=== PATIENT | male | born 1960 | race Two or more races ===

== ENCOUNTER 2020-09-15 10:14 | Inpatient (IN) | payer OTHER ==
[~2020-09-15] VITALS: Ht 167.6 cm; Wt 72.9 kg
[2020-09-15 11:08] LABS: GLUCOSE,POINT OF CARE 55 MG/DL (70-110)
[2020-09-15] MEDS ORDERED: DEXTROSE 50%-WATER 25 GM/50 ML SYRINGE IVP PRN (11:15)
[2020-09-15] MEDS ORDERED: INSULIN LISPRO 100 UNITS/ML SQ PRN (11:15)
[2020-09-15] MEDS ORDERED: DEXTROSE 50%-WATER 25 GM/50 ML SYRINGE IVP ONE (11:15)
[2020-09-15 11:22] LABS: GLUCOSE,POINT OF CARE 52 MG/DL (70-110)
[2020-09-15 11:29] LABS: BASOPHILS % (AUTO) 0.3 % (0.0-2.0); EOSINOPHILS % (AUTO) 0.6 % (1.0-6.0); HEMATOCRIT 45.5 % (41-53); LYMPHOCYTES # (AUTO) 1.4 K/uL (1.0-4.8); LYMPHOCYTES % (AUTO) 18.1 % (22.0-44.0); MEAN CORPUSCULAR HEMOGLOBIN 28.8 pg (26.0-34.0); MEAN CORPUSCULAR HGB CONC 32.9 G/dL (31.0-37.0); MEAN CORPUSCULAR VOLUME 88 fL (80-100); MONOCYTES # (AUTO) 0.5 K/uL (0.1-1.0); MONOCYTES % (AUTO) 6.4 % (2.0-9.0); NEUTROPHILS # (AUTO) 5.6 K/uL (1.8-7.7); NEUTROPHILS % (AUTO) 74.6 % (40.0-70.0); PLATELET COUNT (AUTO) 211 K/uL (150-450); RED CELL DISTRIBUTION WIDTH 15.4 % (11.5-14.5)
[2020-09-15 11:30] LABS: COVID AG,FIA SOURCE NASOPHARYNGEAL
[2020-09-15] MEDS ORDERED: ALBUTEROL SULFATE 2.5 MG/0.5 ML NEB SOLUTION NEB PRN (11:30)
[2020-09-15] MEDS ORDERED: ONDANSETRON HCL 4 MG/2 ML VIAL IVP PRN (11:30)
[2020-09-15 11:43] LABS: PROTHROMBIN TIME 10.9 SEC (9.4-11.6)
[2020-09-15 11:47] LABS: ANION GAP 5 mmol/L (8-16); CARBON DIOXIDE 31 mmol/L (22-29); CHLORIDE 104 mmol/L (98-107); CREATININE 0.72 mg/dL (0.60-1.30); GLOMERULAR FILTR. RATE CALC > 60 mL/min (>60); GLUCOSE,RANDOM 88 mg/dL (70-110); POTASSIUM 4.7 mmol/L (3.5-5.1); SODIUM SERUM 140 mmol/L (136-145); UREA NITROGEN, BLOOD 13 mg/dL (7-18)
[2020-09-15 11:49] LABS: APPEARANCE,URINE CLEAR (CLEAR); BILIRUBIN,URINE NEGATIVE (NEGATIVE); GLUCOSE, URINE (UA) NEGATIVE (NEGATIVE); KETONES,URINE NEGATIVE (NEGATIVE); LEUKOCYTE ESTERASE ,URINE NEGATIVE (NEGATIVE); NITRATE,URINE NEGATIVE (NEGATIVE); OCCULT BLOOD,URINE NEGATIVE (NEGATIVE); PROTEIN,URINE NEGATIVE (NEGATIVE); UROBILINOGEN,URINE 0.2 mg/dL (<=1.0)
[2020-09-15 11:53] LABS: ALANINE AMINOTRANSFERASE 95 U/L (12-78); ALBUMIN 3.9 g/dL (3.4-5.0); ALKALINE PHOSPHATASE 148 U/L (46-116); ASPARTATE AMINOTRANSFERASE 64 U/L (15-37); BILIRUBIN,TOTAL 0.6 mg/dL (0.1-1.0); LIPASE 449 U/L (73-393); TOTAL PROTEIN, SERUM 7.6 g/dL (6.4-8.2)
[2020-09-15 11:59] LABS: B-TYPE NATRIURETIC PEPTIDE 23 pg/mL (0-100)
[2020-09-15 12:20] LABS: SQUAMOUS EPITHELIAL CELL,UR Rare /LPF (None Seen)
[2020-09-15 12:22] LABS: RBC,URINE 0-2 /HPF (0-2); WBC,URINE 0-2 /HPF (0-5)
[2020-09-15 12:23] LABS: BACTERIA,URINE None Seen /HPF (None Seen)
[2020-09-15 12:27] LABS: GLUCOSE,POINT OF CARE 272 MG/DL (70-110)
[2020-09-15 13:19] LABS: GLUCOSE,POINT OF CARE 225 MG/DL (70-110)
[2020-09-15 14:00] VITALS: BP 132/54
[2020-09-15] MEDS: HEPARIN SODIUM,PORCINE 5,000 UNITS/ML VIAL SQ SCH ×3 (16:00→23:33)
[2020-09-15] MEDS: CloNIDine HCL 0.1 MG TABLET PO PRN (16:50)
[2020-09-15 17:45] VITALS: BP 144/86
[2020-09-15 19:21] VITALS: BP 165/96
[2020-09-15] MEDS: ACETAMINOPHEN 325 MG TABLET PO PRN ×2 (19:24→19:25)
[2020-09-15] MEDS: DOCUSATE SODIUM 100 MG CAPSULE PO SCH (19:37)
[2020-09-15 23:09] VITALS: BP 136/97
[2020-09-16] VITALS (7 sets, daily range): BP systolic 121–191; BP diastolic 71–113
[2020-09-16] MEDS: FAMOTIDINE 20 MG TABLET PO SCH (08:19)
[2020-09-16] MEDS: HEPARIN SODIUM,PORCINE 5,000 UNITS/ML VIAL SQ SCH ×3 (08:19→23:46)
[2020-09-16] MEDS: DOCUSATE SODIUM 100 MG CAPSULE PO SCH ×2 (08:19→20:13)
[2020-09-16] MEDS: CloNIDine HCL 0.1 MG TABLET PO PRN (09:15)
[2020-09-16] MEDS: LISINOPRIL 20 MG TABLET PO SCH (10:30)
[2020-09-16 11:31] LABS: GLUCOMETER DEV NAME(LOC) 5S.1; GLUCOSE,POINT OF CARE 121 MG/DL (70-110)
[2020-09-16 11:32] LABS: GLUCOMETER DEV NAME(LOC) 5N.3; GLUCOSE,POINT OF CARE 106 MG/DL (70-110)
[2020-09-16] MEDS: MetFORMIN HCL 500 MG TABLET PO SCH (17:06)
[2020-09-16 17:41] LABS: AMPHET/METH SCREEN,URINE POSITIVE (NEGATIVE); BARBITURATE SCREEN, URINE NEGATIVE (NEGATIVE); BENZODIAZEPINES SCREEN,URINE NEGATIVE (NEGATIVE); CANNABINOID SCREEN,URINE NEGATIVE (NEGATIVE); COCAINE SCREEN,URINE NEGATIVE (NEGATIVE); METHADONE SCREEN, URINE NEGATIVE (NEGATIVE); OPIATE SCREEN,URINE NEGATIVE (NEGATIVE)
[2020-09-16 17:42] LABS: PHENCYCLIDINE SCREEN,URINE NEGATIVE (NEGATIVE)
[2020-09-16 18:11] LABS: GLUCOMETER DEV NAME(LOC) 6N.1; GLUCOSE,POINT OF CARE 86 MG/DL (70-110)
[2020-09-16 19:53] LABS: GLUCOMETER DEV NAME(LOC) 5S.1; GLUCOSE,POINT OF CARE 93 MG/DL (70-110)
[2020-09-16 23:48] LABS: GLUCOMETER DEV NAME(LOC) 6N.1; GLUCOSE,POINT OF CARE 132 MG/DL (70-110)
[2020-09-17] MEDS: ACETAMINOPHEN 325 MG TABLET PO PRN (00:36)
[2020-09-17 00:55] VITALS: BP 113/75
[2020-09-17 05:25] LABS: GLUCOMETER DEV NAME(LOC) 6N.1; GLUCOSE,POINT OF CARE 90 MG/DL (70-110)
[2020-09-17 05:38] VITALS: BP 188/105
[2020-09-17 06:26] LABS: ANION GAP 5 mmol/L (8-16); CALCIUM, TOTAL 8.2 mg/dL (8.8-10.5); CARBON DIOXIDE 27 mmol/L (22-29); CHLORIDE 106 mmol/L (98-107); CREATININE 0.77 mg/dL (0.60-1.30); GLOMERULAR FILTR. RATE CALC > 60 mL/min (>60); GLUCOSE,RANDOM 97 mg/dL (70-110); POTASSIUM 3.9 mmol/L (3.5-5.1); SODIUM SERUM 138 mmol/L (136-145); UREA NITROGEN, BLOOD 23 mg/dL (7-18)
[2020-09-17 08:04] VITALS: BP 149/96
[2020-09-17] MEDS: MetFORMIN HCL 500 MG TABLET PO SCH ×2 (08:12→16:56)
[2020-09-17] MEDS: HEPARIN SODIUM,PORCINE 5,000 UNITS/ML VIAL SQ SCH ×3 (08:12→23:13)
[2020-09-17] MEDS: DOCUSATE SODIUM 100 MG CAPSULE PO SCH ×2 (08:19→20:37)
[2020-09-17] MEDS: FAMOTIDINE 20 MG TABLET PO SCH (08:19)
[2020-09-17] MEDS: LISINOPRIL 20 MG TABLET PO SCH (08:19)
[2020-09-17 13:09] LABS: GLUCOMETER DEV NAME(LOC) 6N.1; GLUCOSE,POINT OF CARE 93 MG/DL (70-110)
[2020-09-17] MEDS ORDERED: FUROSEMIDE 40 MG/4 ML VIAL IVP ONE (15:15)
[2020-09-17 19:50] VITALS: BP 135/79
[2020-09-17 20:20] LABS: GLUCOMETER DEV NAME(LOC) 6S.1; GLUCOSE,POINT OF CARE 139 MG/DL (70-110)
[2020-09-17 22:27] LABS: GLUCOMETER DEV NAME(LOC) 6N.1; GLUCOSE,POINT OF CARE 148 MG/DL (70-110)
[2020-09-18 04:59] VITALS: BP 154/92
[2020-09-18 05:50] LABS: GLUCOMETER DEV NAME(LOC) 6S.1; GLUCOSE,POINT OF CARE 97 MG/DL (70-110)
[2020-09-18 06:34] LABS: AMYLASE 120 U/L (25-115); LIPASE 293 U/L (73-393)
[2020-09-18 08:06] VITALS: BP 132/82
[2020-09-18] MEDS: LISINOPRIL 20 MG TABLET PO SCH (08:36)
[2020-09-18] MEDS: DOCUSATE SODIUM 100 MG CAPSULE PO SCH ×2 (08:36→20:58)
[2020-09-18] MEDS: FAMOTIDINE 20 MG TABLET PO SCH (08:37)
[2020-09-18] MEDS: HEPARIN SODIUM,PORCINE 5,000 UNITS/ML VIAL SQ SCH ×2 (08:37→16:09)
[2020-09-18] MEDS: MetFORMIN HCL 500 MG TABLET PO SCH (08:37)
[2020-09-18] MEDS ORDERED: FUROSEMIDE 40 MG/4 ML VIAL IVP SCH (09:00)
[2020-09-18] MEDS ORDERED: FAMO20 PO (19:26)
[2020-09-18] MEDS ORDERED: LISI-893 PO (19:26)
[2020-09-18] MEDS ORDERED: INSU100V SQ (19:27)
[2020-09-18] MEDS ORDERED: ACET-2247 PO (19:27)
[2020-09-18 19:46] LABS: GLUCOMETER DEV NAME(LOC) 6N.1; GLUCOSE,POINT OF CARE 132 MG/DL (70-110)
[2020-09-18 19:46] LABS: GLUCOMETER DEV NAME(LOC) 6N.1; GLUCOSE,POINT OF CARE 118 MG/DL (70-110)
[2020-09-18 20:00] VITALS: BP 126/66
[2020-09-19] MEDS: HEPARIN SODIUM,PORCINE 5,000 UNITS/ML VIAL SQ SCH
[2020-09-19 03:52] VITALS: BP 144/85
== END 2020-09-19 07:50 | DRG 637 ==
LOC: EMS 10:24 → 5S 12:26 → 6S 09-16 12:25
PROVIDERS: ADMIT Internal Medicine; ATTEND Internal Medicine
DX: E11.649 Type 2 diabetes mellitus with hypoglycemia without coma (principal); K85.90 Acute pancreatitis without necrosis or infection, unspecified; I50.32 Chronic diastolic (congestive) heart failure; I11.0 Hypertensive heart disease with heart failure; Z20.822 Contact with and (suspected) exposure to COVID-19; F15.10 Other stimulant abuse, uncomplicated
CPT/HCPCS: 70450; 71045; 80048; 80053; 80307; 81001; 82150; 82948; 82962; 83036; 83690; 83880; 84484; 85025; 85610; 93005; 93306; 93970; 99285; J1644; J1940; 36415-L1; 36415-TC

== ENCOUNTER 2020-09-27 19:12 | Inpatient (IN) | payer OTHER ==
[~2020-09-27] VITALS: Ht 157.5 cm; Wt 68.2 kg
[~2020-09-27 19:12] MED LIST: ACET-2247 PO; FAMO20 PO; INSU100V SQ; LISI-893 PO
[2020-09-27 20:08] LABS: GLUCOSE,POINT OF CARE 114 MG/DL (70-110)
[2020-09-27 20:48] LABS: BASOPHILS % (AUTO) 0.6 % (0.0-2.0); EOSINOPHILS % (AUTO) 0.9 % (1.0-6.0); HEMATOCRIT 40.4 % (41-53); HEMOGLOBIN 13.2 g/dL (13.5-17.5); LYMPHOCYTES # (AUTO) 2.1 K/uL (1.0-4.8); LYMPHOCYTES % (AUTO) 30.9 % (22.0-44.0); MEAN CORPUSCULAR HEMOGLOBIN 28.9 pg (26.0-34.0); MEAN CORPUSCULAR HGB CONC 32.6 G/dL (31.0-37.0); MEAN CORPUSCULAR VOLUME 89 fL (80-100); MONOCYTES # (AUTO) 0.7 K/uL (0.1-1.0); MONOCYTES % (AUTO) 10.3 % (2.0-9.0); NEUTROPHILS # (AUTO) 3.9 K/uL (1.8-7.7); NEUTROPHILS % (AUTO) 57.3 % (40.0-70.0); PLATELET COUNT (AUTO) 215 K/uL (150-450); RED BLOOD CELL COUNT(AUTO) 4.56 MIL/uL (4.50-5.90); RED CELL DISTRIBUTION WIDTH 15.5 % (11.5-14.5)
[2020-09-27 20:50] LABS: COVID AG,FIA SOURCE NASOPHARYNGEAL
[2020-09-27 20:57] LABS: ANION GAP 6 mmol/L (8-16); CALCIUM, TOTAL 8.4 mg/dL (8.8-10.5); CARBON DIOXIDE 29 mmol/L (22-29); CHLORIDE 106 mmol/L (98-107); GLOMERULAR FILTR. RATE CALC > 60 mL/min (>60); GLUCOSE,RANDOM 106 mg/dL (70-110); POTASSIUM 4.1 mmol/L (3.5-5.1); SODIUM SERUM 141 mmol/L (136-145); UREA NITROGEN, BLOOD 19 mg/dL (7-18)
[2020-09-27] MEDS ORDERED: ACETAMINOPHEN 325 MG TABLET PO PRN (21:45)
[2020-09-27] MEDS ORDERED: ONDANSETRON HCL 4 MG/2 ML VIAL IVP PRN ×2 (21:45→22:45)
[2020-09-27 22:17] VITALS: BP 184/101
[2020-09-27] MEDS ORDERED: LISINOPRIL 10 MG TABLET PO ONE (23:00)
[2020-09-27 23:06] LABS: ALANINE AMINOTRANSFERASE 78 U/L (12-78); ALKALINE PHOSPHATASE 105 U/L (46-116); ASPARTATE AMINOTRANSFERASE 38 U/L (15-37); BILIRUBIN,TOTAL 0.2 mg/dL (0.1-1.0); TOTAL PROTEIN, SERUM 6.8 g/dL (6.4-8.2)
[2020-09-27] MEDS: ACETAMINOPHEN 500 MG TABLET PO PRN (23:07)
[2020-09-27 23:59] LABS: GLUCOMETER DEV NAME(LOC) 6N.1; GLUCOSE,POINT OF CARE 95 MG/DL (70-110)
[2020-09-28 00:42] LABS: APPEARANCE,URINE CLEAR (CLEAR); BILIRUBIN,URINE NEGATIVE (NEGATIVE); GLUCOSE, URINE (UA) NEGATIVE (NEGATIVE); KETONES,URINE NEGATIVE (NEGATIVE); LEUKOCYTE ESTERASE ,URINE NEGATIVE (NEGATIVE); NITRATE,URINE NEGATIVE (NEGATIVE); OCCULT BLOOD,URINE NEGATIVE (NEGATIVE); PH,URINE 6.5 (5.0-8.0); PROTEIN,URINE NEGATIVE (NEGATIVE)
[2020-09-28 01:01] LABS: BACTERIA,URINE None Seen /HPF (None Seen); RBC,URINE None Seen /HPF (0-2); SQUAMOUS EPITHELIAL CELL,UR None Seen /LPF (None Seen); WBC,URINE 0-2 /HPF (0-5)
[2020-09-28 01:31] VITALS: BP 141/74
[2020-09-28 04:37] VITALS: BP 132/76
[2020-09-28] MEDS ORDERED: INSULIN LISPRO 100 UNITS/ML SQ PRN (07:00)
[2020-09-28] MEDS ORDERED: DEXTROSE 50%-WATER 25 GM/50 ML SYRINGE IVP PRN (07:00)
[2020-09-28 07:51] VITALS: BP 136/67
[2020-09-28] MEDS: LIDOCAINE 5% 36 GM OINTMENT TP SCH ×4 (08:01→20:20)
[2020-09-28] MEDS: LISINOPRIL 20 MG TABLET PO SCH (08:01)
[2020-09-28] MEDS: FAMOTIDINE 20 MG TABLET PO SCH (08:01)
[2020-09-28] MEDS ORDERED: LISINOPRIL 10 MG TABLET PO SCH (09:00)
[2020-09-28 12:49] LABS: GLUCOMETER DEV NAME(LOC) 6S.1; GLUCOSE,POINT OF CARE 89 MG/DL (70-110)
[2020-09-28] MEDS: ASPIRIN 81 MG CHEWABLE TABLET PO SCH (15:36)
[2020-09-28 18:18] LABS: GLUCOMETER DEV NAME(LOC) 6N.1; GLUCOSE,POINT OF CARE 94 MG/DL (70-110)
[2020-09-28] MEDS: ATORVASTATIN CALCIUM 40 MG TABLET PO SCH (20:20)
[2020-09-28] MEDS: INSULIN GLARGINE,HUM.REC.ANLOG 100 UNITS/ML SQ SCH (20:25)
[2020-09-28 20:45] VITALS: BP 133/79
[2020-09-29 04:34] LABS: GLUCOMETER DEV NAME(LOC) 6S.1; GLUCOSE,POINT OF CARE 103 MG/DL (70-110)
[2020-09-29 05:37] VITALS: BP 160/98
[2020-09-29 06:06] LABS: BASOPHILS % (AUTO) 0.3 % (0.0-2.0); EOSINOPHILS % (AUTO) 1.1 % (1.0-6.0); HEMATOCRIT 40.3 % (41-53); HEMOGLOBIN 13.2 g/dL (13.5-17.5); LYMPHOCYTES # (AUTO) 2.2 K/uL (1.0-4.8); LYMPHOCYTES % (AUTO) 29.3 % (22.0-44.0); MEAN CORPUSCULAR HEMOGLOBIN 29.2 pg (26.0-34.0); MEAN CORPUSCULAR HGB CONC 32.9 G/dL (31.0-37.0); MEAN CORPUSCULAR VOLUME 89 fL (80-100); MONOCYTES # (AUTO) 0.6 K/uL (0.1-1.0); MONOCYTES % (AUTO) 7.9 % (2.0-9.0); NEUTROPHILS # (AUTO) 4.6 K/uL (1.8-7.7); NEUTROPHILS % (AUTO) 61.4 % (40.0-70.0); PLATELET COUNT (AUTO) 217 K/uL (150-450); RED BLOOD CELL COUNT(AUTO) 4.54 MIL/uL (4.50-5.90); RED CELL DISTRIBUTION WIDTH 15.4 % (11.5-14.5)
[2020-09-29 07:15] LABS: ALANINE AMINOTRANSFERASE 77 U/L (12-78); ALBUMIN 2.9 g/dL (3.4-5.0); ALKALINE PHOSPHATASE 97 U/L (46-116); ANION GAP 5 mmol/L (8-16); ASPARTATE AMINOTRANSFERASE 41 U/L (15-37); BILIRUBIN,TOTAL 0.3 mg/dL (0.1-1.0); CALCIUM, TOTAL 8.4 mg/dL (8.8-10.5); CARBON DIOXIDE 27 mmol/L (22-29); CHLORIDE 104 mmol/L (98-107); CREATININE 0.66 mg/dL (0.60-1.30); FREE T4 (FREE THYROXINE) 1.13 ng/dL (0.76-1.46); GLOMERULAR FILTR. RATE CALC > 60 mL/min (>60); GLUCOSE,RANDOM 86 mg/dL (70-110); POTASSIUM 3.9 mmol/L (3.5-5.1); SODIUM SERUM 136 mmol/L (136-145); THYROID STIMULATING HORMONE 2.07 uIU/mL (0.36-3.74); TOTAL PROTEIN, SERUM 6.9 g/dL (6.4-8.2); UREA NITROGEN, BLOOD 22 mg/dL (7-18)
[2020-09-29 07:41] LABS: GLUCOMETER DEV NAME(LOC) 6S.1; GLUCOSE,POINT OF CARE 78 MG/DL (70-110)
[2020-09-29 07:57] VITALS: BP 149/78
[2020-09-29] MEDS: ASPIRIN 81 MG CHEWABLE TABLET PO SCH (08:57)
[2020-09-29] MEDS: LISINOPRIL 20 MG TABLET PO SCH (08:57)
[2020-09-29] MEDS: FAMOTIDINE 20 MG TABLET PO SCH (08:57)
[2020-09-29] MEDS: LIDOCAINE 5% 36 GM OINTMENT TP SCH ×4 (08:57→20:08)
[2020-09-29 12:15] LABS: GLUCOMETER DEV NAME(LOC) 6N.1; GLUCOSE,POINT OF CARE 106 MG/DL (70-110)
[2020-09-29 17:52] LABS: GLUCOMETER DEV NAME(LOC) 6S.1; GLUCOSE,POINT OF CARE 133 MG/DL (70-110)
[2020-09-29 19:48] VITALS: BP 142/73
[2020-09-29] MEDS: ATORVASTATIN CALCIUM 40 MG TABLET PO SCH (20:08)
[2020-09-29] MEDS: INSULIN GLARGINE,HUM.REC.ANLOG 100 UNITS/ML SQ SCH (20:11)
[2020-09-30 05:34] VITALS: BP 168/88
[2020-09-30] MEDS ORDERED: AmLODIPine BESYLATE 5 MG TABLET PO ONE (06:15)
[2020-09-30 07:29] VITALS: BP 149/85
[2020-09-30 08:10] LABS: GLUCOMETER DEV NAME(LOC) 6N.1; GLUCOSE,POINT OF CARE 126 MG/DL (70-110)
[2020-09-30 08:11] LABS: GLUCOMETER DEV NAME(LOC) 6S.1; GLUCOSE,POINT OF CARE 105 MG/DL (70-110)
[2020-09-30] MEDS: LISINOPRIL 20 MG TABLET PO SCH (08:24)
[2020-09-30] MEDS: LIDOCAINE 5% 36 GM OINTMENT TP SCH ×4 (08:24→20:02)
[2020-09-30] MEDS: AmLODIPine BESYLATE 5 MG TABLET PO SCH (08:24)
[2020-09-30] MEDS: ASPIRIN 81 MG CHEWABLE TABLET PO SCH (08:24)
[2020-09-30] MEDS: FAMOTIDINE 20 MG TABLET PO SCH (08:24)
[2020-09-30] MEDS: ACETAMINOPHEN 500 MG TABLET PO PRN (10:30)
[2020-09-30 11:15] VITALS: BP 142/84
[2020-09-30 11:59] LABS: GLUCOMETER DEV NAME(LOC) 6N.1; GLUCOSE,POINT OF CARE 102 MG/DL (70-110)
[2020-09-30 19:15] LABS: GLUCOMETER DEV NAME(LOC) 6N.1; GLUCOSE,POINT OF CARE 100 MG/DL (70-110)
[2020-09-30 19:28] VITALS: BP 115/58
[2020-09-30] MEDS: ATORVASTATIN CALCIUM 40 MG TABLET PO SCH (20:02)
[2020-09-30] MEDS: INSULIN GLARGINE,HUM.REC.ANLOG 100 UNITS/ML SQ SCH (20:15)
[2020-10-01 05:00] VITALS: BP 142/89
[2020-10-01 05:37] LABS: GLUCOMETER DEV NAME(LOC) 6S.1; GLUCOSE,POINT OF CARE 107 MG/DL (70-110)
[2020-10-01 06:13] LABS: GLUCOMETER DEV NAME(LOC) 6N.1; GLUCOSE,POINT OF CARE 99 MG/DL (70-110)
[2020-10-01 07:39] VITALS: BP 115/67
[2020-10-01] MEDS: LIDOCAINE 5% 36 GM OINTMENT TP SCH ×4 (08:28→21:00)
[2020-10-01] MEDS: LISINOPRIL 20 MG TABLET PO SCH (08:28)
[2020-10-01] MEDS: ASPIRIN 81 MG CHEWABLE TABLET PO SCH (08:28)
[2020-10-01] MEDS: AmLODIPine BESYLATE 5 MG TABLET PO SCH (08:28)
[2020-10-01] MEDS: FAMOTIDINE 20 MG TABLET PO SCH (08:28)
[2020-10-01 12:24] LABS: GLUCOMETER DEV NAME(LOC) 6N.1; GLUCOSE,POINT OF CARE 95 MG/DL (70-110)
[2020-10-01 15:55] VITALS: BP 143/80
[2020-10-01] MEDS: ARIPiprazole 5 MG TABLET PO SCH (17:10)
[2020-10-01 19:39] VITALS: BP 139/87
[2020-10-01] MEDS: ATORVASTATIN CALCIUM 40 MG TABLET PO SCH (21:26)
[2020-10-01] MEDS: INSULIN GLARGINE,HUM.REC.ANLOG 100 UNITS/ML SQ SCH (21:29)
[2020-10-01 22:31] LABS: GLUCOMETER DEV NAME(LOC) 6N.1; GLUCOSE,POINT OF CARE 83 MG/DL (70-110)
[2020-10-02 04:14] VITALS: BP 144/87
[2020-10-02] MEDS: ARIPiprazole 5 MG TABLET PO SCH (08:09)
[2020-10-02] MEDS: FAMOTIDINE 20 MG TABLET PO SCH (08:09)
[2020-10-02] MEDS: AmLODIPine BESYLATE 5 MG TABLET PO SCH (08:09)
[2020-10-02] MEDS: LISINOPRIL 20 MG TABLET PO SCH (08:09)
[2020-10-02] MEDS: ASPIRIN 81 MG CHEWABLE TABLET PO SCH (08:10)
[2020-10-02] MEDS: LIDOCAINE 5% 36 GM OINTMENT TP SCH ×4 (08:12→21:18)
[2020-10-02 08:20] VITALS: BP 142/82
[2020-10-02 10:26] LABS: GLUCOMETER DEV NAME(LOC) 6S.1; GLUCOSE,POINT OF CARE 110 MG/DL (70-110)
[2020-10-02 10:26] LABS: GLUCOMETER DEV NAME(LOC) 6S.1; GLUCOSE,POINT OF CARE 105 MG/DL (70-110)
[2020-10-02 16:02] LABS: GLUCOMETER DEV NAME(LOC) 6N.1; GLUCOSE,POINT OF CARE 104 MG/DL (70-110)
[2020-10-02 19:00] LABS: GLUCOMETER DEV NAME(LOC) 6S.1; GLUCOSE,POINT OF CARE 85 MG/DL (70-110)
[2020-10-02] MEDS: ACETAMINOPHEN 500 MG TABLET PO PRN (21:08)
[2020-10-02] MEDS: ATORVASTATIN CALCIUM 40 MG TABLET PO SCH (21:17)
[2020-10-02] MEDS: INSULIN GLARGINE,HUM.REC.ANLOG 100 UNITS/ML SQ SCH (21:17)
[2020-10-02 23:05] VITALS: BP 144/96
[2020-10-03 04:10] VITALS: BP 121/78
[2020-10-03 07:34] LABS: GLUCOMETER DEV NAME(LOC) 6S.1; GLUCOSE,POINT OF CARE 126 MG/DL (70-110)
[2020-10-03 07:34] LABS: GLUCOMETER DEV NAME(LOC) 6S.1; GLUCOSE,POINT OF CARE 131 MG/DL (70-110)
[2020-10-03 07:55] VITALS: BP 131/76
[2020-10-03] MEDS: LISINOPRIL 20 MG TABLET PO SCH (08:11)
[2020-10-03] MEDS: ARIPiprazole 5 MG TABLET PO SCH (08:11)
[2020-10-03] MEDS: ASPIRIN 81 MG CHEWABLE TABLET PO SCH (08:11)
[2020-10-03] MEDS: LIDOCAINE 5% 36 GM OINTMENT TP SCH ×4 (08:12→20:07)
[2020-10-03] MEDS: FAMOTIDINE 20 MG TABLET PO SCH (08:12)
[2020-10-03] MEDS: AmLODIPine BESYLATE 5 MG TABLET PO SCH (08:12)
[2020-10-03] MEDS: RisperiDONE 1 MG TABLET PO SCH ×2 (10:29→20:00)
[2020-10-03 15:32] VITALS: BP 90/51
[2020-10-03 19:04] LABS: GLUCOMETER DEV NAME(LOC) 6N.1; GLUCOSE,POINT OF CARE 106 MG/DL (70-110)
[2020-10-03 19:04] LABS: GLUCOMETER DEV NAME(LOC) 6N.1; GLUCOSE,POINT OF CARE 138 MG/DL (70-110)
[2020-10-03] MEDS: ATORVASTATIN CALCIUM 40 MG TABLET PO SCH (20:00)
[2020-10-03] MEDS: INSULIN GLARGINE,HUM.REC.ANLOG 100 UNITS/ML SQ SCH (20:03)
[2020-10-03 20:45] LABS: GLUCOMETER DEV NAME(LOC) 6S.1; GLUCOSE,POINT OF CARE 132 MG/DL (70-110)
[2020-10-03 20:48] VITALS: BP 136/90
[2020-10-04 04:05] VITALS: BP 118/79
[2020-10-04 07:07] LABS: GLUCOMETER DEV NAME(LOC) 6S.1; GLUCOSE,POINT OF CARE 106 MG/DL (70-110)
[2020-10-04 07:39] VITALS: BP 129/94
[2020-10-04] MEDS: AmLODIPine BESYLATE 5 MG TABLET PO SCH (09:05)
[2020-10-04] MEDS: LISINOPRIL 20 MG TABLET PO SCH (09:05)
[2020-10-04] MEDS: RisperiDONE 1 MG TABLET PO SCH ×2 (09:05→19:55)
[2020-10-04] MEDS: ARIPiprazole 5 MG TABLET PO SCH (09:05)
[2020-10-04] MEDS: LIDOCAINE 5% 36 GM OINTMENT TP SCH ×4 (09:06→19:55)
[2020-10-04] MEDS: ASPIRIN 81 MG CHEWABLE TABLET PO SCH (09:06)
[2020-10-04] MEDS: FAMOTIDINE 20 MG TABLET PO SCH (09:06)
[2020-10-04] MEDS: ATORVASTATIN CALCIUM 40 MG TABLET PO SCH (19:55)
[2020-10-04] MEDS: INSULIN GLARGINE,HUM.REC.ANLOG 100 UNITS/ML SQ SCH (20:01)
[2020-10-04 20:10] VITALS: BP 118/77
[2020-10-04] MEDS: ACETAMINOPHEN 500 MG TABLET PO PRN (20:56)
[2020-10-05 03:18] LABS: GLUCOMETER DEV NAME(LOC) 6S.1; GLUCOSE,POINT OF CARE 73 MG/DL (70-110)
[2020-10-05 03:18] LABS: GLUCOMETER DEV NAME(LOC) 6S.1; GLUCOSE,POINT OF CARE 189 MG/DL (70-110)
[2020-10-05 03:18] LABS: GLUCOMETER DEV NAME(LOC) 6N.1; GLUCOSE,POINT OF CARE 102 MG/DL (70-110)
[2020-10-05 06:00] VITALS: BP 126/82
[2020-10-05 07:14] VITALS: BP 130/77
[2020-10-05 07:30] LABS: GLUCOMETER DEV NAME(LOC) 6N.1; GLUCOSE,POINT OF CARE 84 MG/DL (70-110)
[2020-10-05] MEDS: ARIPiprazole 5 MG TABLET PO SCH (08:38)
[2020-10-05] MEDS: AmLODIPine BESYLATE 5 MG TABLET PO SCH (08:39)
[2020-10-05] MEDS: RisperiDONE 1 MG TABLET PO SCH ×2 (08:39→20:17)
[2020-10-05] MEDS: LISINOPRIL 20 MG TABLET PO SCH (08:39)
[2020-10-05] MEDS: ASPIRIN 81 MG CHEWABLE TABLET PO SCH (08:39)
[2020-10-05] MEDS: FAMOTIDINE 20 MG TABLET PO SCH (08:39)
[2020-10-05] MEDS: LIDOCAINE 5% 36 GM OINTMENT TP SCH ×4 (08:40→20:17)
[2020-10-05 12:17] LABS: GLUCOMETER DEV NAME(LOC) 6S.1; GLUCOSE,POINT OF CARE 94 MG/DL (70-110)
[2020-10-05 17:46] LABS: GLUCOMETER DEV NAME(LOC) 6N.1; GLUCOSE,POINT OF CARE 104 MG/DL (70-110)
[2020-10-05] MEDS: ATORVASTATIN CALCIUM 40 MG TABLET PO SCH (20:17)
[2020-10-05 20:23] VITALS: BP 125/76
[2020-10-05] MEDS: INSULIN GLARGINE,HUM.REC.ANLOG 100 UNITS/ML SQ SCH (20:27)
[2020-10-06 03:17] LABS: GLUCOMETER DEV NAME(LOC) 6N.1; GLUCOSE,POINT OF CARE 106 MG/DL (70-110)
[2020-10-06 05:20] VITALS: BP 114/76
[2020-10-06] MEDS: LIDOCAINE 5% 36 GM OINTMENT TP SCH ×3 (08:03→15:41)
[2020-10-06 08:04] LABS: GLUCOMETER DEV NAME(LOC) 6N.1; GLUCOSE,POINT OF CARE 88 MG/DL (70-110)
[2020-10-06] MEDS: FAMOTIDINE 20 MG TABLET PO SCH (08:04)
[2020-10-06] MEDS: LISINOPRIL 20 MG TABLET PO SCH (08:04)
[2020-10-06] MEDS: ARIPiprazole 5 MG TABLET PO SCH (08:04)
[2020-10-06] MEDS: AmLODIPine BESYLATE 5 MG TABLET PO SCH (08:04)
[2020-10-06] MEDS: RisperiDONE 1 MG TABLET PO SCH (08:04)
[2020-10-06] MEDS: ASPIRIN 81 MG CHEWABLE TABLET PO SCH (08:04)
[2020-10-06 08:26] VITALS: BP 120/74
[2020-10-06 12:55] LABS: GLUCOMETER DEV NAME(LOC) 6S.1; GLUCOSE,POINT OF CARE 114 MG/DL (70-110)
[2020-10-06 17:31] LABS: GLUCOMETER DEV NAME(LOC) 6S.1; GLUCOSE,POINT OF CARE 97 MG/DL (70-110)
== END 2020-10-06 18:30 | DRG 554 ==
LOC: EMS 19:18 → 6S 21:30
PROVIDERS: ADMIT Internal Medicine; ATTEND Internal Medicine
DX: M19.90 Unspecified osteoarthritis, unspecified site (principal); R45.851 Suicidal ideations; E11.9 Type 2 diabetes mellitus without complications; Z20.822 Contact with and (suspected) exposure to COVID-19; I50.9 Heart failure, unspecified; I11.0 Hypertensive heart disease with heart failure; F15.10 Other stimulant abuse, uncomplicated; R53.81 Other malaise; F29 Unspecified psychosis not due to a substance or known physiological condition
CPT/HCPCS: 70450; 80048; 80053; 80076; 81001; 82962; 84439; 84443; 85025; 97110; 97116; 97161; 97166; 97530; 97535; 99285; J1815

== ENCOUNTER 2020-11-02 11:45 | Inpatient (IN) | payer OTHER ==
[~2020-11-02] VITALS: Ht 157.5 cm; Wt 70.4 kg
[2020-11-02] MEDS ORDERED: ATOR40TA28 PO (12:18)
[2020-11-02] MEDS ORDERED: ARIP10TA38 PO (12:18)
[2020-11-02] MEDS ORDERED: AMLO-258 PO (12:18)
[2020-11-02] MEDS ORDERED: SOLI5 PO (12:18)
[2020-11-02] MEDS ORDERED: OMEP20 PO (12:18)
[2020-11-02] MEDS ORDERED: ASPI81TA39 PO (12:18)
[2020-11-02] MEDS ORDERED: ESCI-8 PO (12:18)
[2020-11-02 12:28] LABS: GLUCOSE,POINT OF CARE 81 MG/DL (70-110)
[2020-11-02 14:03] LABS: COVID AG,FIA SOURCE NASOPHARYNGEAL
[2020-11-02 14:14] LABS: APPEARANCE,URINE CLEAR (CLEAR); BASOPHILS % (AUTO) 0.6 % (0.0-2.0); BILIRUBIN,URINE NEGATIVE (NEGATIVE); EOSINOPHILS % (AUTO) 0.5 % (1.0-6.0); GLUCOSE, URINE (UA) NEGATIVE (NEGATIVE); HEMATOCRIT 42.8 % (41-53); HEMOGLOBIN 14.2 g/dL (13.5-17.5); KETONES,URINE NEGATIVE (NEGATIVE); LEUKOCYTE ESTERASE ,URINE NEGATIVE (NEGATIVE); LYMPHOCYTES # (AUTO) 1.6 K/uL (1.0-4.8); LYMPHOCYTES % (AUTO) 20.2 % (22.0-44.0); MEAN CORPUSCULAR HEMOGLOBIN 29.2 pg (26.0-34.0); MEAN CORPUSCULAR HGB CONC 33.1 G/dL (31.0-37.0); MEAN CORPUSCULAR VOLUME 88 fL (80-100); MONOCYTES # (AUTO) 0.5 K/uL (0.1-1.0); MONOCYTES % (AUTO) 5.9 % (2.0-9.0); NEUTROPHILS # (AUTO) 5.7 K/uL (1.8-7.7); NEUTROPHILS % (AUTO) 72.8 % (40.0-70.0); NITRATE,URINE NEGATIVE (NEGATIVE); OCCULT BLOOD,URINE NEGATIVE (NEGATIVE); PH,URINE 6.5 (5.0-8.0); PLATELET COUNT (AUTO) 196 K/uL (150-450); PROTEIN,URINE NEGATIVE (NEGATIVE); RED BLOOD CELL COUNT(AUTO) 4.86 MIL/uL (4.50-5.90); RED CELL DISTRIBUTION WIDTH 14.9 % (11.5-14.5); UROBILINOGEN,URINE 0.2 mg/dL (<=1.0)
[2020-11-02 14:40] LABS: B-TYPE NATRIURETIC PEPTIDE 9 pg/mL (0-100)
[2020-11-02 14:48] LABS: ANION GAP 11 mmol/L (8-16); CALCIUM, TOTAL 9.4 mg/dL (8.8-10.5); CARBON DIOXIDE 26 mmol/L (22-29); CHLORIDE 103 mmol/L (98-107); CREATININE 0.63 mg/dL (0.60-1.30); GLOMERULAR FILTR. RATE CALC > 60 mL/min (>60); GLUCOSE,RANDOM 85 mg/dL (70-110); POTASSIUM 4.2 mmol/L (3.5-5.1); SODIUM SERUM 140 mmol/L (136-145); UREA NITROGEN, BLOOD 13 mg/dL (7-18)
[2020-11-02 14:55] LABS: ALANINE AMINOTRANSFERASE 114 U/L (12-78); ALBUMIN 3.6 g/dL (3.4-5.0); ALKALINE PHOSPHATASE 110 U/L (46-116); ASPARTATE AMINOTRANSFERASE 60 U/L (15-37); BILIRUBIN,TOTAL 0.3 mg/dL (0.1-1.0); CREATINE KINASE, TOTAL ONLY 65 U/L (39-308); TOTAL PROTEIN, SERUM 8.2 g/dL (6.4-8.2)
[2020-11-02] MEDS ORDERED: LISI-894 PO (18:21)
[2020-11-02] MEDS ORDERED: ACETAMINOPHEN 325 MG TABLET PO PRN ×2 (18:30)
[2020-11-02] MEDS ORDERED: HYDROCODONE/ACETAMINOPHEN 5-325 MG TABLET PO PRN (18:30)
[2020-11-02] MEDS ORDERED: MORPHINE SULFATE 2 MG/ML SYRINGE IVP PRN (18:30)
[2020-11-02] MEDS ORDERED: BISACODYL 10 MG RECTAL RECTAL SUPPOSITORY PR PRN (18:30)
[2020-11-02] MEDS ORDERED: 0.9% SODIUM CHLORIDE 10 ML SYRINGE IVP PRN (18:30)
[2020-11-02] MEDS ORDERED: MAGNESIUM HYDROXIDE SUSPENSION 30 ML UDCUP PO PRN (18:30)
[2020-11-02] MEDS ORDERED: ZOLPIDEM TARTRATE 5 MG TABLET PO PRN (18:30)
[2020-11-02] MEDS ORDERED: ONDANSETRON HCL 4 MG/2 ML VIAL IVP PRN ×2 (18:30)
[2020-11-02] MEDS: DOCUSATE SODIUM 100 MG CAPSULE PO SCH (20:09)
[2020-11-02] MEDS: ATORVASTATIN CALCIUM 40 MG TABLET PO SCH (20:10)
[2020-11-02 21:45] VITALS: BP 154/87
[2020-11-03] MEDS: HEPARIN SODIUM,PORCINE 5,000 UNITS/ML VIAL SQ SCH ×7 (00:19→23:48)
[2020-11-03 04:00] VITALS: BP 118/74
[2020-11-03 06:02] LABS: BASOPHILS % (AUTO) 0.3 % (0.0-2.0); EOSINOPHILS % (AUTO) 1.4 % (1.0-6.0); HEMATOCRIT 40.3 % (41-53); HEMOGLOBIN 13.5 g/dL (13.5-17.5); LYMPHOCYTES # (AUTO) 2.5 K/uL (1.0-4.8); LYMPHOCYTES % (AUTO) 32.2 % (22.0-44.0); MEAN CORPUSCULAR HEMOGLOBIN 29.1 pg (26.0-34.0); MEAN CORPUSCULAR HGB CONC 33.5 G/dL (31.0-37.0); MEAN CORPUSCULAR VOLUME 87 fL (80-100); MONOCYTES # (AUTO) 0.6 K/uL (0.1-1.0); MONOCYTES % (AUTO) 8.5 % (2.0-9.0); NEUTROPHILS # (AUTO) 4.4 K/uL (1.8-7.7); NEUTROPHILS % (AUTO) 57.6 % (40.0-70.0); PLATELET COUNT (AUTO) 191 K/uL (150-450); RED BLOOD CELL COUNT(AUTO) 4.65 MIL/uL (4.50-5.90); RED CELL DISTRIBUTION WIDTH 14.7 % (11.5-14.5)
[2020-11-03 07:03] LABS: ALANINE AMINOTRANSFERASE 104 U/L (12-78); ALBUMIN 3.2 g/dL (3.4-5.0); ALKALINE PHOSPHATASE 94 U/L (46-116); ANION GAP 5 mmol/L (8-16); ASPARTATE AMINOTRANSFERASE 50 U/L (15-37); BILIRUBIN,TOTAL 0.3 mg/dL (0.1-1.0); CARBON DIOXIDE 25 mmol/L (22-29); CHLORIDE 106 mmol/L (98-107); CREATININE 0.73 mg/dL (0.60-1.30); GLOMERULAR FILTR. RATE CALC > 60 mL/min (>60); GLUCOSE,RANDOM 90 mg/dL (70-110); POTASSIUM 3.7 mmol/L (3.5-5.1); SODIUM SERUM 136 mmol/L (136-145); TOTAL PROTEIN, SERUM 7.4 g/dL (6.4-8.2); UREA NITROGEN, BLOOD 16 mg/dL (7-18)
[2020-11-03 07:55] VITALS: BP 142/92
[2020-11-03] MEDS: DOCUSATE SODIUM 100 MG CAPSULE PO SCH ×2 (08:49→20:13)
[2020-11-03] MEDS: ASPIRIN 81 MG CHEWABLE TABLET PO SCH (08:49)
[2020-11-03] MEDS: PANTOPRAZOLE SODIUM 40 MG DR TABLET PO SCH (08:49)
[2020-11-03] MEDS: LISINOPRIL 20 MG TABLET PO SCH (08:49)
[2020-11-03] MEDS: AmLODIPine BESYLATE 10 MG TABLET PO SCH (08:49)
[2020-11-03] MEDS: ESCITALOPRAM OXALATE 10 MG TABLET PO SCH (08:51)
[2020-11-03] MEDS: SOLIFENACIN SUCCINATE 5 MG TABLET PO SCH (08:51)
[2020-11-03] MEDS ORDERED: ARIPiprazole 10 MG TABLET PO SCH (09:00)
[2020-11-03] MEDS: ATORVASTATIN CALCIUM 40 MG TABLET PO SCH (20:12)
[2020-11-03] MEDS: OLANZapine 5 MG TABLET PO SCH (20:12)
[2020-11-03 20:43] VITALS: BP 100/77
[2020-11-04 04:10] VITALS: BP 115/73
[2020-11-04 08:00] VITALS: BP 126/71
[2020-11-04] MEDS: HEPARIN SODIUM,PORCINE 5,000 UNITS/ML VIAL SQ SCH ×2 (08:00→15:32)
[2020-11-04] MEDS: LISINOPRIL 20 MG TABLET PO SCH (08:56)
[2020-11-04] MEDS: ASPIRIN 81 MG CHEWABLE TABLET PO SCH (08:56)
[2020-11-04] MEDS: OLANZapine 5 MG TABLET PO SCH ×2 (08:56→21:10)
[2020-11-04] MEDS: SOLIFENACIN SUCCINATE 5 MG TABLET PO SCH (08:56)
[2020-11-04] MEDS: DOCUSATE SODIUM 100 MG CAPSULE PO SCH ×2 (08:57→21:10)
[2020-11-04] MEDS: ESCITALOPRAM OXALATE 10 MG TABLET PO SCH (08:57)
[2020-11-04] MEDS: PANTOPRAZOLE SODIUM 40 MG DR TABLET PO SCH (08:57)
[2020-11-04] MEDS: AmLODIPine BESYLATE 10 MG TABLET PO SCH (08:57)
[2020-11-04 21:08] VITALS: BP 128/77
[2020-11-04] MEDS: ATORVASTATIN CALCIUM 40 MG TABLET PO SCH (21:10)
[2020-11-05] MEDS: HEPARIN SODIUM,PORCINE 5,000 UNITS/ML VIAL SQ SCH ×3 (00:31→15:26)
[2020-11-05 04:52] VITALS: BP 105/55
[2020-11-05 08:29] VITALS: BP 127/75
[2020-11-05] MEDS: PANTOPRAZOLE SODIUM 40 MG DR TABLET PO SCH (08:42)
[2020-11-05] MEDS: LISINOPRIL 20 MG TABLET PO SCH (08:42)
[2020-11-05] MEDS: ASPIRIN 81 MG CHEWABLE TABLET PO SCH (08:42)
[2020-11-05] MEDS: OLANZapine 5 MG TABLET PO SCH ×2 (08:42→20:39)
[2020-11-05] MEDS: DOCUSATE SODIUM 100 MG CAPSULE PO SCH ×2 (08:42→20:39)
[2020-11-05] MEDS: SOLIFENACIN SUCCINATE 5 MG TABLET PO SCH (08:42)
[2020-11-05] MEDS: AmLODIPine BESYLATE 10 MG TABLET PO SCH (08:43)
[2020-11-05] MEDS: ESCITALOPRAM OXALATE 10 MG TABLET PO SCH (08:43)
[2020-11-05] MEDS: ATORVASTATIN CALCIUM 40 MG TABLET PO SCH (20:39)
[2020-11-05 20:44] VITALS: BP 121/67
[2020-11-06] MEDS: HEPARIN SODIUM,PORCINE 5,000 UNITS/ML VIAL SQ SCH ×4 (00:09→23:14)
[2020-11-06 00:16] VITALS: BP 108/62
[2020-11-06 05:01] VITALS: BP 113/66
[2020-11-06 07:55] VITALS: BP 128/76
[2020-11-06] MEDS: SOLIFENACIN SUCCINATE 5 MG TABLET PO SCH (09:02)
[2020-11-06] MEDS: DOCUSATE SODIUM 100 MG CAPSULE PO SCH ×2 (09:02→20:45)
[2020-11-06] MEDS: PANTOPRAZOLE SODIUM 40 MG DR TABLET PO SCH (09:02)
[2020-11-06] MEDS: ASPIRIN 81 MG CHEWABLE TABLET PO SCH (09:02)
[2020-11-06] MEDS: LISINOPRIL 20 MG TABLET PO SCH (09:02)
[2020-11-06] MEDS: OLANZapine 5 MG TABLET PO SCH (09:03)
[2020-11-06] MEDS: ESCITALOPRAM OXALATE 10 MG TABLET PO SCH (09:03)
[2020-11-06] MEDS: AmLODIPine BESYLATE 10 MG TABLET PO SCH (09:03)
[2020-11-06 19:37] VITALS: BP 117/66
[2020-11-06] MEDS: ATORVASTATIN CALCIUM 40 MG TABLET PO SCH (20:45)
[2020-11-07 04:32] VITALS: BP 128/70
[2020-11-07 08:04] VITALS: BP 128/87
[2020-11-07] MEDS: DOCUSATE SODIUM 100 MG CAPSULE PO SCH ×2 (08:34→20:46)
[2020-11-07] MEDS: OLANZapine 5 MG TABLET PO SCH (08:34)
[2020-11-07] MEDS: PANTOPRAZOLE SODIUM 40 MG DR TABLET PO SCH (08:34)
[2020-11-07] MEDS: LISINOPRIL 20 MG TABLET PO SCH (08:34)
[2020-11-07] MEDS: ASPIRIN 81 MG CHEWABLE TABLET PO SCH (08:34)
[2020-11-07] MEDS: AmLODIPine BESYLATE 10 MG TABLET PO SCH (08:34)
[2020-11-07] MEDS: ESCITALOPRAM OXALATE 10 MG TABLET PO SCH (08:34)
[2020-11-07] MEDS: SOLIFENACIN SUCCINATE 5 MG TABLET PO SCH (08:34)
[2020-11-07] MEDS: HEPARIN SODIUM,PORCINE 5,000 UNITS/ML VIAL SQ SCH ×2 (08:35→16:48)
[2020-11-07 19:48] VITALS: BP 117/70
[2020-11-07] MEDS: ATORVASTATIN CALCIUM 40 MG TABLET PO SCH (20:46)
[2020-11-07] MEDS ORDERED: OLANZapine 10 MG TABLET PO SCH (21:00)
[2020-11-07 23:59] VITALS: BP 96/44
[2020-11-08] MEDS: HEPARIN SODIUM,PORCINE 5,000 UNITS/ML VIAL SQ SCH ×3 (00:16→16:00)
[2020-11-08 03:56] VITALS: BP 100/57
[2020-11-08 08:03] VITALS: BP 127/74
[2020-11-08] MEDS: OLANZapine 5 MG TABLET PO SCH (09:00)
[2020-11-08] MEDS: ASPIRIN 81 MG CHEWABLE TABLET PO SCH (09:03)
[2020-11-08] MEDS: ESCITALOPRAM OXALATE 10 MG TABLET PO SCH (09:03)
[2020-11-08] MEDS: AmLODIPine BESYLATE 10 MG TABLET PO SCH (09:03)
[2020-11-08] MEDS: PANTOPRAZOLE SODIUM 40 MG DR TABLET PO SCH (09:04)
[2020-11-08] MEDS: LISINOPRIL 20 MG TABLET PO SCH (09:04)
[2020-11-08] MEDS: DOCUSATE SODIUM 100 MG CAPSULE PO SCH (09:04)
[2020-11-08] MEDS: SOLIFENACIN SUCCINATE 5 MG TABLET PO SCH (09:05)
[2020-11-08] MEDS ORDERED: ASPI-1450 PO (10:57)
[2020-11-08] MEDS ORDERED: ASPI81TA87 PO (11:04)
[2020-11-08] MEDS ORDERED: OLAN5TAB52 PO (11:05)
[2020-11-08] MEDS ORDERED: OLAN10TA74 PO (11:05)
[2020-11-08] MEDS ORDERED: DOCU-270 PO (11:06)
[2020-11-08] MEDS ORDERED: MOM30 PO (11:29)
[2020-11-08] MEDS ORDERED: BISA10SU11 PR (11:30)
== END 2020-11-08 18:50 | DRG 641 ==
LOC: EMS 12:00 → 5S 18:00 → 6S 18:01
PROVIDERS: ADMIT Internal Medicine; ATTEND Internal Medicine
DX: R62.7 Adult failure to thrive (principal); R32 Unspecified urinary incontinence; E11.9 Type 2 diabetes mellitus without complications; E78.5 Hyperlipidemia, unspecified; F29 Unspecified psychosis not due to a substance or known physiological condition; Z20.822 Contact with and (suspected) exposure to COVID-19; K21.9 Gastro-esophageal reflux disease without esophagitis; I50.9 Heart failure, unspecified; F41.9 Anxiety disorder, unspecified; Z68.28 Body mass index [BMI] 28.0-28.9, adult; I11.0 Hypertensive heart disease with heart failure
CPT/HCPCS: 71045; 80053; 81003; 82550; 82962; 83880; 84484; 85025; 87081; 93005; 97110; 97116; 97162; 99285; J1644; 36415-L1; 36415-TC

== ENCOUNTER 2020-11-19 18:07 | Inpatient (IN) | payer OTHER ==
[~2020-11-19] VITALS: Ht 165.1 cm; Wt 72.2 kg
[~2020-11-19 18:07] MED LIST changes: +AMLO-258 PO; +ASPI-1450 PO; +ATOR40TA28 PO; +BISA10SU11 PR; +DOCU-270 PO; +ESCI-8 PO; -FAMO20 PO; -INSU100V SQ; -LISI-893 PO; +LISI-894 PO; +MOM30 PO; +OLAN10TA74 PO; +OLAN5TAB52 PO; +SOLI5 PO
[2020-11-19] MEDS ORDERED: OMEP20 PO (19:42)
[2020-11-19] MEDS ORDERED: LISI-894 PO (19:42)
[2020-11-19] MEDS ORDERED: ARIP10TA38 PO (19:42)
[2020-11-19 20:23] LABS: BASOPHILS % (AUTO) 0.3 % (0.0-2.0); EOSINOPHILS % (AUTO) 1.8 % (1.0-6.0); HEMATOCRIT 37.4 % (41-53); HEMOGLOBIN 12.5 g/dL (13.5-17.5); LYMPHOCYTES # (AUTO) 1.5 K/uL (1.0-4.8); LYMPHOCYTES % (AUTO) 22.6 % (22.0-44.0); MEAN CORPUSCULAR HEMOGLOBIN 29.3 pg (26.0-34.0); MEAN CORPUSCULAR HGB CONC 33.3 G/dL (31.0-37.0); MEAN CORPUSCULAR VOLUME 88 fL (80-100); MONOCYTES # (AUTO) 0.7 K/uL (0.1-1.0); MONOCYTES % (AUTO) 10.7 % (2.0-9.0); NEUTROPHILS # (AUTO) 4.2 K/uL (1.8-7.7); NEUTROPHILS % (AUTO) 64.6 % (40.0-70.0); PLATELET COUNT (AUTO) 188 K/uL (150-450); RED BLOOD CELL COUNT(AUTO) 4.26 MIL/uL (4.50-5.90); RED CELL DISTRIBUTION WIDTH 15.4 % (11.5-14.5)
[2020-11-19 20:37] LABS: ANION GAP 5 mmol/L (8-16); CALCIUM, TOTAL 8.5 mg/dL (8.8-10.5); CARBON DIOXIDE 25 mmol/L (22-29); CHLORIDE 108 mmol/L (98-107); CREATININE 0.66 mg/dL (0.60-1.30); GLOMERULAR FILTR. RATE CALC > 60 mL/min (>60); GLUCOSE,RANDOM 94 mg/dL (70-110); POTASSIUM 3.6 mmol/L (3.5-5.1); SODIUM SERUM 138 mmol/L (136-145); UREA NITROGEN, BLOOD 14 mg/dL (7-18)
[2020-11-19 20:53] LABS: ALANINE AMINOTRANSFERASE 110 U/L (12-78); ALBUMIN 3.2 g/dL (3.4-5.0); ALKALINE PHOSPHATASE 111 U/L (46-116); ASPARTATE AMINOTRANSFERASE 58 U/L (15-37); BILIRUBIN,TOTAL 0.3 mg/dL (0.1-1.0); FREE T4 (FREE THYROXINE) 1.03 ng/dL (0.76-1.46); THYROID STIMULATING HORMONE 2.82 uIU/mL (0.36-3.74); TOTAL PROTEIN, SERUM 7.9 g/dL (6.4-8.2)
[2020-11-19 21:08] LABS: COVID AG,FIA SOURCE NASOPHARYNGEAL
[2020-11-19] MEDS ORDERED: ZOLPIDEM TARTRATE 5 MG TABLET PO PRN (21:30)
[2020-11-19] MEDS ORDERED: MAGNESIUM HYDROXIDE SUSPENSION 30 ML UDCUP PO PRN (21:30)
[2020-11-19] MEDS ORDERED: ONDANSETRON HCL 4 MG/2 ML VIAL IVP PRN (21:30)
[2020-11-19] MEDS ORDERED: ACETAMINOPHEN 325 MG TABLET PO PRN (21:30)
[2020-11-20 00:31] VITALS: BP 148/88
[2020-11-20] MEDS: HEPARIN SODIUM,PORCINE 5,000 UNITS/ML VIAL SQ SCH ×4 (00:33→21:48)
[2020-11-20 05:43] VITALS: BP 97/63
[2020-11-20 06:43] LABS: GLUCOMETER DEV NAME(LOC) 6S.1; GLUCOSE,POINT OF CARE 77 MG/DL (70-110)
[2020-11-20 08:20] VITALS: BP 115/78
[2020-11-20] MEDS: MULTIVITAMINS WITH MINERALS, THERAPEUTIC TABLET PO SCH (08:30)
[2020-11-20] MEDS: FAMOTIDINE 20 MG TABLET PO SCH (08:31)
[2020-11-20] MEDS: AmLODIPine BESYLATE 5 MG TABLET PO SCH (09:00)
[2020-11-20] MEDS ORDERED: MULTIVITAMINS WITH MINERALS, THERAPEUTIC TABLET PO SCH (09:00)
[2020-11-20] MEDS: ASPIRIN 81 MG CHEWABLE TABLET PO SCH (10:08)
[2020-11-20 10:11] VITALS: BP 109/68
[2020-11-20] MEDS ORDERED: DEXTROSE 50%-WATER 25 GM/50 ML SYRINGE IVP PRN (12:15)
[2020-11-20] MEDS: INSULIN LISPRO 100 UNITS/ML SQ PRN ×2 (12:18→17:07)
[2020-11-20 12:49] LABS: GLUCOMETER DEV NAME(LOC) 6N.1; GLUCOSE,POINT OF CARE 161 MG/DL (70-110)
[2020-11-20] MEDS: TAMSULOSIN HCL 0.4 MG CAPSULE PO SCH ×2 (14:51→20:03)
[2020-11-20 17:29] LABS: APPEARANCE,URINE CLEAR (CLEAR); BILIRUBIN,URINE NEGATIVE (NEGATIVE); GLUCOSE, URINE (UA) NEGATIVE (NEGATIVE); KETONES,URINE NEGATIVE (NEGATIVE); LEUKOCYTE ESTERASE ,URINE NEGATIVE (NEGATIVE); NITRATE,URINE NEGATIVE (NEGATIVE); OCCULT BLOOD,URINE NEGATIVE (NEGATIVE); PROTEIN,URINE NEGATIVE (NEGATIVE)
[2020-11-20 17:46] LABS: BACTERIA,URINE Rare /HPF (None Seen); RBC,URINE 0-2 /HPF (0-2); SQUAMOUS EPITHELIAL CELL,UR Rare /LPF (None Seen); WBC,URINE 0-2 /HPF (0-5)
[2020-11-20 18:42] LABS: GLUCOMETER DEV NAME(LOC) 6N.1; GLUCOSE,POINT OF CARE 169 MG/DL (70-110)
[2020-11-20 19:24] VITALS: BP 120/74
[2020-11-21 00:03] LABS: GLUCOMETER DEV NAME(LOC) 6S.1; GLUCOSE,POINT OF CARE 130 MG/DL (70-110)
[2020-11-21 04:09] VITALS: BP 136/80
[2020-11-21 06:38] LABS: GLUCOMETER DEV NAME(LOC) 6S.1; GLUCOSE,POINT OF CARE 91 MG/DL (70-110)
[2020-11-21 08:16] VITALS: BP 114/70
[2020-11-21] MEDS ORDERED: TraZODone HCL 50 MG TABLET PO PRN (09:00)
[2020-11-21] MEDS: ASPIRIN 81 MG CHEWABLE TABLET PO SCH (09:38)
[2020-11-21] MEDS: TAMSULOSIN HCL 0.4 MG CAPSULE PO SCH ×2 (09:38→20:07)
[2020-11-21] MEDS: AmLODIPine BESYLATE 5 MG TABLET PO SCH (09:38)
[2020-11-21] MEDS: FAMOTIDINE 20 MG TABLET PO SCH (09:38)
[2020-11-21] MEDS: FLUoxetine HCL 20 MG CAPSULE PO SCH (09:38)
[2020-11-21] MEDS: HEPARIN SODIUM,PORCINE 5,000 UNITS/ML VIAL SQ SCH ×3 (09:38→22:55)
[2020-11-21] MEDS: MULTIVITAMINS WITH MINERALS, THERAPEUTIC TABLET PO SCH (09:38)
[2020-11-21] MEDS ORDERED: FLUO20CA36 PO (11:19)
[2020-11-21] MEDS ORDERED: FAMO20 PO (11:19)
[2020-11-21] MEDS ORDERED: MULT-1192 PO (11:20)
[2020-11-21] MEDS ORDERED: TAMS-13 PO (11:20)
[2020-11-21] MEDS ORDERED: INSU100V SQ (11:21)
[2020-11-21 16:50] LABS: GLUCOMETER DEV NAME(LOC) 6S.1; GLUCOSE,POINT OF CARE 136 MG/DL (70-110)
[2020-11-21 20:38] VITALS: BP 138/85
[2020-11-22 00:41] LABS: GLUCOMETER DEV NAME(LOC) 6S.1; GLUCOSE,POINT OF CARE 95 MG/DL (70-110)
[2020-11-22 05:32] LABS: GLUCOMETER DEV NAME(LOC) 6N.1; GLUCOSE,POINT OF CARE 142 MG/DL (70-110)
[2020-11-22 07:48] LABS: GLUCOMETER DEV NAME(LOC) 6N.1; GLUCOSE,POINT OF CARE 93 MG/DL (70-110)
[2020-11-22] MEDS: TAMSULOSIN HCL 0.4 MG CAPSULE PO SCH (08:13)
[2020-11-22] MEDS: FLUoxetine HCL 20 MG CAPSULE PO SCH (08:13)
[2020-11-22] MEDS: MULTIVITAMINS WITH MINERALS, THERAPEUTIC TABLET PO SCH (08:13)
[2020-11-22] MEDS: HEPARIN SODIUM,PORCINE 5,000 UNITS/ML VIAL SQ SCH (08:13)
[2020-11-22] MEDS: AmLODIPine BESYLATE 5 MG TABLET PO SCH (08:13)
[2020-11-22] MEDS: ASPIRIN 81 MG CHEWABLE TABLET PO SCH (08:13)
[2020-11-22] MEDS: FAMOTIDINE 20 MG TABLET PO SCH (08:13)
[2020-11-22 08:35] VITALS: BP 157/86
[2020-11-22] MEDS ORDERED: TRAZ-252 PO (09:31)
== END 2020-11-22 16:07 | DRG 641 ==
LOC: EMS 18:10 → 6S 21:28
PROVIDERS: ADMIT Internal Medicine; ATTEND Internal Medicine
DX: R62.7 Adult failure to thrive (principal); F33.2 Major depressive disorder, recurrent severe without psychotic features; Z68.26 Body mass index [BMI] 26.0-26.9, adult; E11.9 Type 2 diabetes mellitus without complications; I11.0 Hypertensive heart disease with heart failure; I50.9 Heart failure, unspecified; R32 Unspecified urinary incontinence; Z20.822 Contact with and (suspected) exposure to COVID-19
CPT/HCPCS: 70450; 71045; 80053; 81001; 82962; 84439; 84443; 84484; 85025; 87081; 99285; G0480; J1644; 36415-L1; 36415-TC

== ENCOUNTER 2021-04-30 11:26 | Inpatient (IN) | payer OTHER ==
[~2021-04-30] VITALS: Ht 172.7 cm; Wt 77.3 kg
[~2021-04-30 11:26] MED LIST changes: -ATOR40TA28 PO; -BISA10SU11 PR; -ESCI-8 PO; +FAMO20 PO; +FLUO20CA36 PO; +INSU100V SQ; -LISI-894 PO; +MULT-1192 PO; -OLAN10TA74 PO; -OLAN5TAB52 PO; +OMEP20 PO; -SOLI5 PO; +TAMS-13 PO; +TRAZ-252 PO
[2021-04-30 13:06] LABS: COVID AG,FIA SOURCE NASOPHARYNGEAL
[2021-04-30 14:15] LABS: BASOPHILS % (AUTO) 0.2 % (0.0-2.0); EOSINOPHILS % (AUTO) 0.2 % (1.0-6.0); HEMATOCRIT 38.3 % (41-53); HEMOGLOBIN 13.2 g/dL (13.5-17.5); LYMPHOCYTES # (AUTO) 0.9 K/uL (1.0-4.8); LYMPHOCYTES % (AUTO) 11.6 % (22.0-44.0); MEAN CORPUSCULAR HEMOGLOBIN 29.6 pg (26.0-34.0); MEAN CORPUSCULAR HGB CONC 34.6 G/dL (31.0-37.0); MEAN CORPUSCULAR VOLUME 86 fL (80-100); MONOCYTES # (AUTO) 0.7 K/uL (0.1-1.0); MONOCYTES % (AUTO) 8.8 % (2.0-9.0); NEUTROPHILS # (AUTO) 5.9 K/uL (1.8-7.7); NEUTROPHILS % (AUTO) 79.2 % (40.0-70.0); PLATELET COUNT (AUTO) 187 K/uL (150-450); RED BLOOD CELL COUNT(AUTO) 4.47 MIL/uL (4.50-5.90); RED CELL DISTRIBUTION WIDTH 15.3 % (11.5-14.5)
[2021-04-30 14:22] LABS: ANION GAP 9 mmol/L (8-16); CALCIUM, TOTAL 8.4 mg/dL (8.8-10.5); CARBON DIOXIDE 25 mmol/L (22-29); CHLORIDE 107 mmol/L (98-107); CREATININE 0.81 mg/dL (0.60-1.30); GLOMERULAR FILTR. RATE CALC > 60 mL/min (>60); GLUCOSE,RANDOM 105 mg/dL (70-110); POTASSIUM 3.5 mmol/L (3.5-5.1); SODIUM SERUM 141 mmol/L (136-145); UREA NITROGEN, BLOOD 13 mg/dL (7-18)
[2021-04-30 14:29] LABS: ALANINE AMINOTRANSFERASE 61 U/L (12-78); ALBUMIN 3.4 g/dL (3.4-5.0); ALKALINE PHOSPHATASE 102 U/L (46-116); ASPARTATE AMINOTRANSFERASE 36 U/L (15-37); BILIRUBIN,TOTAL 0.6 mg/dL (0.1-1.0); CREATINE KINASE, TOTAL ONLY 61 U/L (39-308); TOTAL PROTEIN, SERUM 7.5 g/dL (6.4-8.2)
[2021-04-30 14:32] LABS: AMMONIA 22 umol/L (11-32)
[2021-04-30 14:34] LABS: INR 1.1 (0.9-1.1); PROTHROMBIN TIME 11.4 SEC (9.4-11.6)
[2021-04-30 14:37] LABS: LACTIC ACID 1.1 mmol/L (0.4-2.0)
[2021-04-30] MEDS: ACETAMINOPHEN 325 MG TABLET PO PRN ×2 (16:47→21:04)
[2021-04-30 18:13] LABS: APPEARANCE,URINE CLEAR (CLEAR); BILIRUBIN,URINE NEGATIVE (NEGATIVE); GLUCOSE, URINE (UA) NEGATIVE (NEGATIVE); KETONES,URINE 40 mg/dL (NEGATIVE); LEUKOCYTE ESTERASE ,URINE NEGATIVE (NEGATIVE); NITRATE,URINE NEGATIVE (NEGATIVE); OCCULT BLOOD,URINE NEGATIVE (NEGATIVE); PH,URINE 6.5 (5.0-8.0); PROTEIN,URINE TRACE (NEGATIVE)
[2021-04-30 18:28] LABS: AMPHET/METH SCREEN,URINE NEGATIVE (NEGATIVE); BARBITURATE SCREEN, URINE NEGATIVE (NEGATIVE); BENZODIAZEPINES SCREEN,URINE NEGATIVE (NEGATIVE); CANNABINOID SCREEN,URINE NEGATIVE (NEGATIVE); COCAINE SCREEN,URINE NEGATIVE (NEGATIVE); METHADONE SCREEN, URINE NEGATIVE (NEGATIVE); OPIATE SCREEN,URINE NEGATIVE (NEGATIVE)
[2021-04-30 18:30] LABS: PHENCYCLIDINE SCREEN,URINE NEGATIVE (NEGATIVE)
[2021-04-30] MEDS ORDERED: ACETAMINOPHEN 325 MG TABLET PO PRN (18:45)
[2021-04-30] MEDS ORDERED: IPRATROPIUM BROMIDE 0.5 MG/2.5 ML NEB SOLUTION NEB PRN (18:45)
[2021-04-30] MEDS ORDERED: ALBUTEROL SULFATE 2.5 MG/0.5 ML NEB SOLUTION NEB PRN (18:45)
[2021-04-30] MEDS ORDERED: ONDANSETRON HCL 4 MG/2 ML VIAL IVP PRN (18:45)
[2021-04-30] MEDS ORDERED: BISACODYL 10 MG RECTAL RECTAL SUPPOSITORY PR PRN (18:45)
[2021-04-30] MEDS ORDERED: MAGNESIUM HYDROXIDE SUSPENSION 30 ML UDCUP PO PRN ×2 (18:45)
[2021-04-30] MEDS ORDERED: ZOLPIDEM TARTRATE 5 MG TABLET PO PRN (18:45)
[2021-04-30] MEDS ORDERED: ATOR-2 PO (18:49)
[2021-04-30] MEDS ORDERED: LISI-894 PO (18:49)
[2021-04-30] MEDS: TraZODone HCL 50 MG TABLET PO SCH (21:04)
[2021-04-30] MEDS: ATORVASTATIN CALCIUM 40 MG TABLET PO SCH (21:04)
[2021-04-30] MEDS: TAMSULOSIN HCL 0.4 MG CAPSULE PO SCH (21:04)
[2021-04-30] MEDS: HEPARIN SODIUM,PORCINE 5,000 UNITS/ML VIAL SQ SCH (23:40)
[2021-05-01 07:44] LABS: BASOPHILS % (AUTO) 0.2 % (0.0-2.0); EOSINOPHILS % (AUTO) 0.8 % (1.0-6.0); LYMPHOCYTES # (AUTO) 1.9 K/uL (1.0-4.8); LYMPHOCYTES % (AUTO) 31.7 % (22.0-44.0); MEAN CORPUSCULAR HEMOGLOBIN 29.6 pg (26.0-34.0); MEAN CORPUSCULAR HGB CONC 34.3 G/dL (31.0-37.0); MEAN CORPUSCULAR VOLUME 86 fL (80-100); MONOCYTES # (AUTO) 0.8 K/uL (0.1-1.0); MONOCYTES % (AUTO) 13.7 % (2.0-9.0); NEUTROPHILS # (AUTO) 3.3 K/uL (1.8-7.7); NEUTROPHILS % (AUTO) 53.6 % (40.0-70.0); PLATELET COUNT (AUTO) 169 K/uL (150-450); RED CELL DISTRIBUTION WIDTH 15.3 % (11.5-14.5)
[2021-05-01 07:51] LABS: ANION GAP 6 mmol/L (8-16); CALCIUM, TOTAL 8.7 mg/dL (8.8-10.5); CARBON DIOXIDE 28 mmol/L (22-29); CHLORIDE 106 mmol/L (98-107); CREATININE 0.87 mg/dL (0.60-1.30); GLOMERULAR FILTR. RATE CALC > 60 mL/min (>60); GLUCOSE,RANDOM 85 mg/dL (70-110); POTASSIUM 3.6 mmol/L (3.5-5.1); SODIUM SERUM 140 mmol/L (136-145); UREA NITROGEN, BLOOD 18 mg/dL (7-18)
[2021-05-01 07:54] LABS: INR 1.1 (0.9-1.1); PROTHROMBIN TIME 11.7 SEC (9.4-11.6)
[2021-05-01 07:56] LABS: ALANINE AMINOTRANSFERASE 56 U/L (12-78); ALBUMIN 3.2 g/dL (3.4-5.0); ALKALINE PHOSPHATASE 97 U/L (46-116); ASPARTATE AMINOTRANSFERASE 32 U/L (15-37); BILIRUBIN,TOTAL 0.7 mg/dL (0.1-1.0); TOTAL PROTEIN, SERUM 7.3 g/dL (6.4-8.2)
[2021-05-01] MEDS: TAMSULOSIN HCL 0.4 MG CAPSULE PO SCH ×3 (10:46→21:00)
[2021-05-01] MEDS: DULoxetine HCL 30 MG CAPSULE PO SCH (10:46)
[2021-05-01] MEDS: FAMOTIDINE 20 MG TABLET PO SCH (10:46)
[2021-05-01] MEDS: MULTIVITAMINS, THERAPEUTIC TABLET PO SCH (10:47)
[2021-05-01] MEDS: ASPIRIN 81 MG CHEWABLE TABLET PO SCH (10:47)
[2021-05-01] MEDS: AmLODIPine BESYLATE 10 MG TABLET PO SCH (10:48)
[2021-05-01] MEDS ORDERED: IBUPROFEN 600 MG TABLET PO ONE (11:15)
[2021-05-01] MEDS: HEPARIN SODIUM,PORCINE 5,000 UNITS/ML VIAL SQ SCH (16:00)
[2021-05-01 16:45] VITALS: BP 111/76
[2021-05-01] MEDS ORDERED: INFLUENZA VIRUS VACCINE QVS 2021-22 (6MO+)/PF 60 MCG/0.5 ML SYRINGE IM. ONE (17:00)
[2021-05-01] MEDS: ATORVASTATIN CALCIUM 40 MG TABLET PO SCH ×2 (20:44→21:00)
[2021-05-01] MEDS: TraZODone HCL 50 MG TABLET PO SCH ×2 (20:44→21:00)
[2021-05-01 21:47] VITALS: BP 117/70
[2021-05-02 05:20] VITALS: BP 150/91
[2021-05-02 07:38] VITALS: BP 145/75
[2021-05-02] MEDS: HEPARIN SODIUM,PORCINE 5,000 UNITS/ML VIAL SQ SCH ×4 (08:56→23:12)
[2021-05-02] MEDS: TAMSULOSIN HCL 0.4 MG CAPSULE PO SCH ×2 (08:56→20:17)
[2021-05-02] MEDS: ASPIRIN 81 MG CHEWABLE TABLET PO SCH (08:56)
[2021-05-02] MEDS: AmLODIPine BESYLATE 10 MG TABLET PO SCH (08:57)
[2021-05-02] MEDS: DULoxetine HCL 30 MG CAPSULE PO SCH (08:57)
[2021-05-02] MEDS: MULTIVITAMINS, THERAPEUTIC TABLET PO SCH (08:57)
[2021-05-02] MEDS: PANTOPRAZOLE SODIUM 40 MG/VIAL IVP SCH (08:57)
[2021-05-02] MEDS: FAMOTIDINE 20 MG TABLET PO SCH (09:00)
[2021-05-02 15:38] VITALS: BP 96/69
[2021-05-02 19:50] VITALS: BP 131/80
[2021-05-02] MEDS: TraZODone HCL 50 MG TABLET PO SCH (20:17)
[2021-05-02] MEDS: ATORVASTATIN CALCIUM 40 MG TABLET PO SCH (20:18)
[2021-05-03 04:55] VITALS: BP 128/66
[2021-05-03 07:40] VITALS: BP 155/68
[2021-05-03] MEDS: FAMOTIDINE 20 MG TABLET PO SCH (08:11)
[2021-05-03] MEDS: TAMSULOSIN HCL 0.4 MG CAPSULE PO SCH ×2 (08:11→20:25)
[2021-05-03] MEDS: PANTOPRAZOLE SODIUM 40 MG/VIAL IVP SCH (08:11)
[2021-05-03] MEDS: ASPIRIN 81 MG CHEWABLE TABLET PO SCH (08:11)
[2021-05-03] MEDS: DULoxetine HCL 30 MG CAPSULE PO SCH (08:11)
[2021-05-03] MEDS: MULTIVITAMINS, THERAPEUTIC TABLET PO SCH (08:11)
[2021-05-03] MEDS: AmLODIPine BESYLATE 10 MG TABLET PO SCH (08:12)
[2021-05-03] MEDS: HEPARIN SODIUM,PORCINE 5,000 UNITS/ML VIAL SQ SCH ×3 (08:12→23:25)
[2021-05-03] MEDS: ACETAMINOPHEN 325 MG TABLET PO PRN (08:16)
[2021-05-03 15:42] VITALS: BP 106/63
[2021-05-03] MEDS ORDERED: SODIUM CHLORIDE 0.9% 1,000 ML IV ONE (17:15)
[2021-05-03 19:20] VITALS: BP 139/83
[2021-05-03] MEDS: ATORVASTATIN CALCIUM 40 MG TABLET PO SCH (20:25)
[2021-05-03] MEDS: TraZODone HCL 50 MG TABLET PO SCH (20:25)
[2021-05-04 05:40] VITALS: BP 146/90
[2021-05-04 08:15] VITALS: BP 143/95
[2021-05-04] MEDS: AmLODIPine BESYLATE 10 MG TABLET PO SCH (08:31)
[2021-05-04] MEDS: ASPIRIN 81 MG CHEWABLE TABLET PO SCH (08:31)
[2021-05-04] MEDS: TAMSULOSIN HCL 0.4 MG CAPSULE PO SCH ×2 (08:31→21:04)
[2021-05-04] MEDS: FAMOTIDINE 20 MG TABLET PO SCH (08:31)
[2021-05-04] MEDS: MULTIVITAMINS, THERAPEUTIC TABLET PO SCH (08:31)
[2021-05-04] MEDS: DULoxetine HCL 30 MG CAPSULE PO SCH (08:31)
[2021-05-04] MEDS: PANTOPRAZOLE SODIUM 40 MG/VIAL IVP SCH (08:32)
[2021-05-04] MEDS: HEPARIN SODIUM,PORCINE 5,000 UNITS/ML VIAL SQ SCH ×2 (08:33→15:13)
[2021-05-04 15:24] VITALS: BP 112/68
[2021-05-04] MEDS: ACETAMINOPHEN 325 MG TABLET PO PRN (17:44)
[2021-05-04] MEDS: TraZODone HCL 50 MG TABLET PO SCH (21:04)
[2021-05-04] MEDS: ATORVASTATIN CALCIUM 40 MG TABLET PO SCH (21:04)
[2021-05-04 21:17] VITALS: BP 100/71
[2021-05-05] MEDS: HEPARIN SODIUM,PORCINE 5,000 UNITS/ML VIAL SQ SCH ×3 (00:02→16:46)
[2021-05-05 05:16] VITALS: BP 110/64
[2021-05-05 08:14] VITALS: BP 119/79
[2021-05-05] MEDS: ASPIRIN 81 MG CHEWABLE TABLET PO SCH (08:28)
[2021-05-05] MEDS: FAMOTIDINE 20 MG TABLET PO SCH (08:28)
[2021-05-05] MEDS: MULTIVITAMINS, THERAPEUTIC TABLET PO SCH (08:28)
[2021-05-05] MEDS: AmLODIPine BESYLATE 10 MG TABLET PO SCH (08:29)
[2021-05-05] MEDS: PANTOPRAZOLE SODIUM 40 MG/VIAL IVP SCH (08:29)
[2021-05-05] MEDS: TAMSULOSIN HCL 0.4 MG CAPSULE PO SCH ×2 (08:29→20:03)
[2021-05-05] MEDS: DULoxetine HCL 30 MG CAPSULE PO SCH (08:31)
[2021-05-05 16:47] VITALS: BP 100/58
[2021-05-05] MEDS ORDERED: BISA-151 PO (18:38)
[2021-05-05] MEDS ORDERED: ALBU1.252 NEB (18:39)
[2021-05-05] MEDS ORDERED: IPRNEB IH (18:41)
[2021-05-05] MEDS ORDERED: MOM30 PO (18:42)
[2021-05-05] MEDS ORDERED: ZOLP-280 PO (18:43)
[2021-05-05] MEDS ORDERED: HEPA500018 SQ (18:54)
[2021-05-05 19:53] VITALS: BP 126/92
[2021-05-05] MEDS: TraZODone HCL 50 MG TABLET PO SCH (20:03)
[2021-05-05] MEDS: ATORVASTATIN CALCIUM 40 MG TABLET PO SCH (20:03)
[2021-05-06] MEDS ORDERED: PANTOPRAZOLE SODIUM 40 MG DR TABLET PO SCH (09:00)
== END 2021-05-05 20:20 | DRG 74 ==
LOC: EMS 11:31 → 6S 05-01 15:55
PROVIDERS: ADMIT Hospitalist; ATTEND Hospitalist
DX: G90.8 Other disorders of autonomic nervous system (principal); I11.0 Hypertensive heart disease with heart failure; I50.9 Heart failure, unspecified; E11.9 Type 2 diabetes mellitus without complications; K21.9 Gastro-esophageal reflux disease without esophagitis; N40.0 Benign prostatic hyperplasia without lower urinary tract symptoms; F32.A Depression, unspecified; S82.831A Other fracture of upper and lower end of right fibula, initial encounter for closed fracture; Z20.822 Contact with and (suspected) exposure to COVID-19; R32 Unspecified urinary incontinence; F09 Unspecified mental disorder due to known physiological condition; W18.39XA Other fall on same level, initial encounter; Y93.89 Activity, other specified; Y92.89 Other specified places as the place of occurrence of the external cause; Y99.8 Other external cause status
CPT/HCPCS: 29515; 70450; 71045; 72125; 80053; 81003; 82140; 82550; 83605; 84484; 85025; 85610; 85730; 87040; 93005; 93306; 93880; 97110; 97116; 97162; 97530; 99285; C9113; J1644; J7030; 36415-L1; 36415-TC